=== PATIENT | male | born 1975 | race African-American/Black ===

== ENCOUNTER 2018-08-07 05:52 | Day surgery (SDC) | END 2018-08-07 09:57 | disposition home or self-care (01) ==

== ENCOUNTER 2019-02-02 07:09 | Day surgery (SDC) | payer OTHER ==
[2019-02-02] VITALS (18 sets, daily range): BP systolic 126–159; BP diastolic 85–102; PULSE 58–70; RESP 12–24; Ht 185.4 cm; Wt 122.9 kg
[~2019-02-02] VITALS: Ht 185.4 cm; Wt 122.9 kg
[~2019-02-02 07:09] MED LIST: BUPIVACAINE 0.5% (SDV) 30 ML INJ ONE; CEFAZOLIN 1 GM INJ ONE; CEFAZOLIN 1 GM/50 ML (PMX) 50 ML IVPB ONE; DEXAMETHASONE 4 MG/ML 1 ML INJ ONE; LIDOCAINE 1% (MPF) 30 ML INJ ONE; POVIDONE IODINE 10% 28.4 GM OINT ONE; PROPOFOL 200 MG INJ ONE; SUCCINYLCHOLINE CHLORIDE 100 MG/5 ML SYG IV ONE; vit d
--- NOTE | 2019-02-02 07:23 | HPN ---
Date/Time of Note Date/Time of Note DATE: 02/02/19 TIME: 07:22 Interval H&P Admission Note Pt. seen H&P reviewed: No system changes JOEY AU DPM Feb 02, 2019 07:23
--- NOTE | 2019-02-02 07:37 | PREAC ---
Date/Time of Note Date/Time of Note DATE: 02/02/19 TIME: 07:36 Anesthesia Eval and Record Evaluation Time Pre-Procedure Interview DATE: 02/02/19 TIME: 07:36 Age 43 Sex male NPO: 8 hrs Preoperative diagnosis R hammertoes Planned procedure repair of R hammertoes Past Medical History Past Medical History: Includes Pulm: Smoking Hx GI: Obesity Surgery & Anesthesia Issues No known issue Meds Anticoagulation: No Beta Virgilio within 24 hr: No Reason Beta Virgilio not given: Pt. not on B-Virgilio Reported Medications [vit d] No Conflict Check, 400 08/07/18 Meds reviewed: Yes Allergies Coded Allergies: No Known Allergy (Unverified , 08/07/18) Allergies Reviewed: Yes Labs/Studies Labs Reviewed: Reviewed by anesthesiologist test: N/A Pre-procedure Exam Airway: Adequate mouth opening, Adequate thyromental dist Mallampati: Mallampati II Teeth: Normal Lung: Normal Heart: Normal ASA Physical Status ASA physical status: 2 Emergency: None Planned Anesthetic General/MAC: Mask, ETT, LMA, MAC Planned Pain Management Local by surgeon Pre-operative Attestations Prior to commencing anesthesia and surgery, the patient was re-evaluated, there was verification of: *The patient's identity *The results of appropriate recent lab work and preoperative vital signs *The above evaluation not changing prior to induction *Anesthetic plan, risk benefits, alternative and complications discussed with patient/family; questions answered; patient/family understands, accepts and wishes to proceed. YURI POSADA Feb 02, 2019 07:37
[2019-02-02] MEDS ORDERED: FENTAnyl 50 MCG/ML VIAL ONE (07:45)
[2019-02-02] MEDS ORDERED: MIDAZOLAM 1 MG/ML 2 ML INJ ONE (07:55)
[2019-02-02] MEDS ORDERED: DIPHENHYDRAMINE 50 MG INJ IV PRN (08:00)
[2019-02-02] MEDS ORDERED: FENTAnyl 50 MCG/ML VIAL IV PRN ×2 (08:00)
[2019-02-02] MEDS ORDERED: HYDROmorphONE 1 MG/5 ML IV SYRINGE IV PRN ×3 (08:00)
[2019-02-02] MEDS ORDERED: ONDANSETRON 4 MG INJ IV PRN (08:00)
[2019-02-02] MEDS ORDERED: ALBUTEROL 0.083% (NEB) 2.5 MG/3 ML AMP HHN PRN (08:00)
[2019-02-02] MEDS ORDERED: METOCLOPRAMIDE 10 MG INJ IV PRN (08:00)
[2019-02-02] MEDS ORDERED: MEPERIDINE 25 MG INJ IV PRN (08:00)
[2019-02-02] MEDS ORDERED: SUCCINYLCHOLINE CHLORIDE 100 MG/5 ML SYG IV ONE (08:18)
[2019-02-02] MEDS ORDERED: PROPOFOL 20 ML ONE (08:18)
[2019-02-02] MEDS ORDERED: LIDOCAINE 100 MG SYRINGE ONE (08:18)
--- NOTE | 2019-02-02 08:59 | SIPON ---
Date/Time of Note Date/Time of Note DATE: 02/02/19 TIME: 08:58 Operative Report Preoperative Diagnosis hammertoes 2,3,4 rt foot Postoperative Diagnosis same Operation/Procedure Performed arthroplasty toes 2,3,4 rt foot Surgeon see signature line visitor information assistant none Anesthesia: general Estimated blood loss: none Transfusion Required none Specimen none Grafts/Implants none Complications none JOEY AU DPM Feb 02, 2019 08:59
--- NOTE | 2019-02-02 10:28 | PAC ---
Date/Time of Note Date/Time of Note DATE: 02/02/19 TIME: 10:28 Post-Anesthesia Notes Post-Anesthesia Note Last documented vital signs Vital Signs Date Temp Pulse Resp B/P (MAP) Pulse Ox O2 O2 Flow FiO2 Time Delivery Rate 02/02/19 98.0 64 17 143/100 94 Mask 08:59 (114) Activity: WNL Respiratory function: WNL Cardiovascular function: WNL Mental status: Baseline Pain reasonably controlled: Yes Hydration appropriate: Yes Nausea/Vomiting absent: Yes YURI POSADA Feb 02, 2019 10:28
--- NOTE | 2019-02-02 15:12 | OPR ---
DATE OF OPERATION: 02/02/2019 PREOPERATIVE DIAGNOSIS: Hammertoe deformity, right foot. POSTOPERATIVE DIAGNOSIS: Hammertoe deformity, right foot. OPERATION PERFORMED: Arthroplasties of toes 2, 3, 4, right foot. SURGEON: Landon Young DPM. DESCRIPTION OF PROCEDURE: The patient was brought to the OR and placed in a supine position on the o perating room table. Anesthesia was achieved using general anesthesia. The ankle was then wrapped s everal times with Webril and tourniquet was placed over the Webril. The foot was then prepped and dr aped in the usual sterile fashion and then tourniquet was inflated to 250 mmHg. Attention was then directed over the dorsal aspect of the second toe, right foot. A 2 cm linear inci nury was made over the PIPJ of the second toe. The incision was deepened in the same plane using sha rp dissection. The head of the proximal phalanx was identified and resected in toto using a power sa w. Next, the area was flushed with normal saline. Extensor tendon was reattached using 4-0 Vicryl. Subcutaneous closure using 4-0 Vicryl and skin closure using 5-0 nylon in a simple interrupted fashi on. Similar procedure was performed on toes #3 and #4 on the right foot. The surgical site was then infiltrated with 5 mL of 0.5% Marcaine plain and 1 mL of dexamethasone phosphate. The surgical site was then covered with Adaptic, 4 x 4 Kerlix in a compressive fashion. Next, the tourniquet was defl ated and immediate capillary was noted to all digits of the right foot. The patient tolerated anesth esia and procedure well and left the OR for recovery room with vital signs stable and neurovascular s tatus intact. Oral and written postop instructions were given to the patient and will follow up with the patient at the office. Dictated By: LANDON CHAMBERS/JAYNE Conf#: [id number] DID#: [id number]
== END 2019-02-02 10:40 | disposition home or self-care (01) ==
LOC: SDS 07:09
PROVIDERS: ATTEND Podiatrist
DX: Z87.891 Personal history of nicotine dependence (principal)
CPT/HCPCS: 28285; J0690; J1100; J1170; J2001; J2175; J2250; J2405; J3010; Z7512; Z7610